=== PATIENT | male | born 1955 | race Caucasian/White ===

== ENCOUNTER 2016-08-07 13:04 | Inpatient (IN) | payer MEDICARE ==
[~2016-08-07] VITALS: Ht 182.9 cm; Wt 99.4 kg
[2016-08-07 13:52] LABS: GLUCOSE,POINT OF CARE 177 MG/DL (70-110)
[2016-08-07 14:06] LABS: BASOPHILS % (AUTO) 0.1 % (0.0-2.0); EOSINOPHILS % (AUTO) 0.1 % (1.0-6.0); HEMATOCRIT 43.6 % (41-53); HEMOGLOBIN 14.5 g/dL (13.5-17.5); LYMPHOCYTES # (AUTO) 1.1 K/uL (1.0-4.8); LYMPHOCYTES % (AUTO) 7.9 % (22.0-44.0); MEAN CORPUSCULAR HEMOGLOBIN 27.2 pg (26.0-34.0); MEAN CORPUSCULAR HGB CONC 33.3 G/dL (31.0-37.0); MEAN CORPUSCULAR VOLUME 81 fL (80-100); MONOCYTES # (AUTO) 1.1 K/uL (0.1-1.0); MONOCYTES % (AUTO) 7.7 % (2.0-9.0); NEUTROPHILS # (AUTO) 11.9 K/uL (1.8-7.7); NEUTROPHILS % (AUTO) 84.2 % (40.0-70.0); PLATELET COUNT (AUTO) 234 K/uL (150-450); RED BLOOD CELL COUNT(AUTO) 5.35 MIL/uL (4.50-5.90); RED CELL DISTRIBUTION WIDTH 16.5 % (11.5-14.5); WHITE BLOOD COUNT (AUTO) 14.1 K/uL (4.5-11.0)
[2016-08-07 14:19] LABS: ANION GAP 20 mmol/L (8-16); CALCIUM, TOTAL 9.3 mg/dL (8.8-10.5); CARBON DIOXIDE 17 mmol/L (22-29); CHLORIDE 102 mmol/L (98-107); GLOMERULAR FILTR. RATE CALC 41 mL/min (>60); POTASSIUM 4.1 mmol/L (3.5-5.1); SODIUM SERUM 139 mmol/L (136-145); UREA NITROGEN, BLOOD 33 mg/dL (7-18)
[2016-08-07 14:25] LABS: ALANINE AMINOTRANSFERASE 53 U/L (12-78); ALBUMIN 4.5 g/dL (3.4-5.0); ASPARTATE AMINOTRANSFERASE 54 U/L (15-37); BILIRUBIN,TOTAL 0.8 mg/dL (0.1-1.0); TOTAL PROTEIN, SERUM 7.8 g/dL (6.4-8.2)
[2016-08-07] MEDS ORDERED: DiphenhydrAMINE HCL 50 MG/ML VIAL IM ONE (16:30)
[2016-08-07] MEDS ORDERED: LORazepam 2 MG/ML VIAL IM ONE (16:30)
[2016-08-07] MEDS ORDERED: HALOPERIDOL LACTATE 5 MG/ML VIAL IM ONE (16:30)
[2016-08-07] MEDS ORDERED: OLANZapine 5 MG RAPDIS TABLET PO PRN (17:15)
[2016-08-07] MEDS ORDERED: HydrOXYzine PAMOATE 50 MG CAPSULE PO PRN (17:15)
[2016-08-07] MEDS ORDERED: MAGNESIUM HYDROXIDE SUSPENSION 30 ML UDCUP PO PRN (17:15)
[2016-08-07] MEDS ORDERED: LORazepam 2 MG TABLET PO PRN (17:15)
[2016-08-07] MEDS ORDERED: TUBERCULIN, PURIFIED PROTEIN DERIVATIVE 5 TU/0.1 ML SYG ID ONE (17:15)
[2016-08-07] MEDS ORDERED: ACETAMINOPHEN 325 MG TABLET PO PRN (17:15)
[2016-08-07] MEDS ORDERED: ZOLPIDEM TARTRATE 10 MG TABLET PO PRN (17:15)
[2016-08-07] MEDS ORDERED: PROMETHAZINE HCL 25 MG TABLET PO PRN (17:15)
[2016-08-07] MEDS ORDERED: LOPERAMIDE HCL 2 MG CAPSULE PO PRN (17:15)
[2016-08-07] MEDS: OLANZapine 5 MG RAPDIS TABLET PO SCH (21:00)
[2016-08-07] MEDS: THIAMINE HCL 100 MG TABLET PO SCH (21:00)
[2016-08-07 22:10] VITALS: BP 142/77
[2016-08-08 02:40] VITALS: BP 151/74
[2016-08-08 07:31] LABS: BASOPHILS # (AUTO) 0.03 K/uL (0.00-0.20); BASOPHILS % (AUTO) 0.2 % (0.0-2.0); EOSINOPHILS # (AUTO) 0.04 K/uL (0.00-0.70); HEMATOCRIT 44.8 % (41-53); HEMOGLOBIN 14.3 g/dL (13.5-17.5); LYMPHOCYTES # (AUTO) 2.1 K/uL (1.0-4.8); MEAN CORPUSCULAR HEMOGLOBIN 26.8 pg (26.0-34.0); MEAN CORPUSCULAR VOLUME 84 fL (80-100); MONOCYTES % (AUTO) 7.3 % (2.0-9.0); NEUTROPHILS # (AUTO) 9.9 K/uL (1.8-7.7); NEUTROPHILS % (AUTO) 76.2 % (40.0-70.0); PLATELET COUNT (AUTO) 184 K/uL (150-450); RED BLOOD CELL COUNT(AUTO) 5.35 MIL/uL (4.50-5.90); RED CELL DISTRIBUTION WIDTH 16.9 % (11.5-14.5); WHITE BLOOD COUNT (AUTO) 13.1 K/uL (4.5-11.0)
[2016-08-08 07:37] LABS: HEMOGLOBIN A1C 6.8 % (4.5-6.2)
[2016-08-08 07:56] LABS: ALANINE AMINOTRANSFERASE 44 U/L (12-78); ALBUMIN 3.8 g/dL (3.4-5.0); ANION GAP 13 mmol/L (8-16); ASPARTATE AMINOTRANSFERASE 45 U/L (15-37); BILIRUBIN,TOTAL 0.5 mg/dL (0.1-1.0); CALCIUM, TOTAL 8.7 mg/dL (8.8-10.5); CARBON DIOXIDE 21 mmol/L (22-29); CHLORIDE 104 mmol/L (98-107); CHOL/HDL RATIO 3.3 (4.2-7.3); GLOMERULAR FILTR. RATE CALC > 60 mL/min (>60); SODIUM SERUM 138 mmol/L (136-145); THYROID STIMULATING HORMONE 0.54 uIU/mL (0.36-3.74); TOTAL PROTEIN, SERUM 6.8 g/dL (6.4-8.2); UREA NITROGEN, BLOOD 29 mg/dL (7-18)
[2016-08-08 08:10] VITALS: BP 129/77
[2016-08-08] MEDS: FOLIC ACID 1 MG TABLET PO SCH (08:20)
[2016-08-08] MEDS: MULTIVITAMINS WITH MINERALS, THERAPEUTIC TABLET PO SCH (08:20)
[2016-08-08] MEDS: THIAMINE HCL 100 MG TABLET PO SCH ×2 (08:20→16:39)
[2016-08-08] MEDS: MAG HYDROX/AL HYDROX/SIMETH ES 30 ML SUSPENSION UDCUP PO PRN ×2 (09:39→21:06)
[2016-08-08] MEDS ORDERED: DEXTROSE 50%-WATER 25 GM/50 ML SYRINGE IVP PRN (16:30)
[2016-08-08 17:00] VITALS: BP 154/83
[2016-08-08 17:02] LABS: GLUCOSE COMMENT 1 Received Meds; GLUCOSE,POINT OF CARE 138 MG/DL (70-110)
[2016-08-08] MEDS: OLANZapine 5 MG RAPDIS TABLET PO SCH (20:15)
[2016-08-08] MEDS: GuaiFENesin/D-METHORPHAN [SUGAR-FREE] 200-20MG/10 ML SYRUP UDCUP PO PRN (20:17)
[2016-08-08] MEDS: DIVALPROEX SODIUM 500 MG ER TABLET PO SCH ×2 (20:17→20:23)
[2016-08-09 02:45] VITALS: BP 156/85
[2016-08-09] MEDS: GuaiFENesin/D-METHORPHAN [SUGAR-FREE] 200-20MG/10 ML SYRUP UDCUP PO PRN (02:48)
[2016-08-09 05:48] LABS: GLUCOSE,POINT OF CARE 128 MG/DL (70-110)
[2016-08-09 06:03] LABS: GLUCOSE,POINT OF CARE 153 MG/DL (70-110)
[2016-08-09] MEDS: INSULIN ASPART 100 UNITS/ML SQ PRN (06:53)
[2016-08-09] MEDS ORDERED: MetFORMIN HCL 500 MG TABLET PO SCH (07:30)
[2016-08-09 08:05] VITALS: BP 142/92
[2016-08-09] MEDS: THIAMINE HCL 100 MG TABLET PO SCH ×2 (08:55→17:03)
[2016-08-09] MEDS: MULTIVITAMINS WITH MINERALS, THERAPEUTIC TABLET PO SCH (08:55)
[2016-08-09] MEDS: FOLIC ACID 1 MG TABLET PO SCH (08:55)
[2016-08-09 16:05] VITALS: BP 161/93
[2016-08-09] MEDS: LISINOPRIL 10 MG TABLET PO SCH (17:03)
[2016-08-09] MEDS: MetFORMIN HCL 500 MG TABLET PO SCH (17:03)
[2016-08-09 17:12] LABS: GLUCOSE COMMENT 1 Received Meds; GLUCOSE,POINT OF CARE 135 MG/DL (70-110)
[2016-08-09] MEDS: DIVALPROEX SODIUM 500 MG ER TABLET PO SCH (20:49)
[2016-08-09 21:00] VITALS: BP 131/73
[2016-08-09] MEDS ORDERED: OLANZapine 10 MG RAPDIS TABLET PO SCH (21:00)
[2016-08-10 02:25] VITALS: BP 148/95
[2016-08-10 07:02] LABS: BASOPHILS % (AUTO) 0.3 % (0.0-2.0); EOSINOPHILS % (AUTO) 0 % (1.0-6.0); HEMATOCRIT 41.9 % (41-53); HEMOGLOBIN 13.7 g/dL (13.5-17.5); LYMPHOCYTES # (AUTO) 1.2 K/uL (1.0-4.8); LYMPHOCYTES % (AUTO) 8.2 % (22.0-44.0); MEAN CORPUSCULAR HEMOGLOBIN 27.2 pg (26.0-34.0); MEAN CORPUSCULAR HGB CONC 32.8 G/dL (31.0-37.0); MEAN CORPUSCULAR VOLUME 83 fL (80-100); MONOCYTES # (AUTO) 1.1 K/uL (0.1-1.0); MONOCYTES % (AUTO) 7.6 % (2.0-9.0); NEUTROPHILS # (AUTO) 12.5 K/uL (1.8-7.7); NEUTROPHILS % (AUTO) 83.9 % (40.0-70.0); PLATELET COUNT (AUTO) 186 K/uL (150-450); RED BLOOD CELL COUNT(AUTO) 5.05 MIL/uL (4.50-5.90); RED CELL DISTRIBUTION WIDTH 16.3 % (11.5-14.5); WHITE BLOOD COUNT (AUTO) 14.9 K/uL (4.5-11.0)
[2016-08-10] MEDS: INSULIN ASPART 100 UNITS/ML SQ PRN ×2 (07:20→11:39)
[2016-08-10] MEDS: LISINOPRIL 10 MG TABLET PO SCH (08:50)
[2016-08-10] MEDS: MetFORMIN HCL 500 MG TABLET PO SCH (08:50)
[2016-08-10] MEDS: FOLIC ACID 1 MG TABLET PO SCH (08:50)
[2016-08-10] MEDS: MULTIVITAMINS WITH MINERALS, THERAPEUTIC TABLET PO SCH (08:50)
[2016-08-10] MEDS: THIAMINE HCL 100 MG TABLET PO SCH ×2 (08:50→16:22)
[2016-08-10 09:31] VITALS: BP 176/87
[2016-08-10] MEDS: MAG HYDROX/AL HYDROX/SIMETH ES 30 ML SUSPENSION UDCUP PO PRN (09:56)
[2016-08-10 11:01] LABS: GLUCOSE,POINT OF CARE 160 MG/DL (70-110)
[2016-08-10 11:10] LABS: GLUCOSE,POINT OF CARE 181 MG/DL (70-110)
[2016-08-10 11:18] LABS: GLUCOSE COMMENT 1 Received Meds; GLUCOSE,POINT OF CARE 163 MG/DL (70-110)
[2016-08-10 16:34] VITALS: BP 134/75
[2016-08-10] MEDS ORDERED: DIVA500T52 PO (17:00)
[2016-08-10] MEDS ORDERED: OLAN10TA22 PO (17:00)
[2016-08-10] MEDS ORDERED: MetFORMIN HCL 500 MG TABLET PO SCH (17:00)
[2016-08-10] MEDS ORDERED: METF500T4 PO (19:08)
[2016-08-10] MEDS ORDERED: LISI-661 PO (19:09)
== END 2016-08-10 19:40 | disposition home or self-care (01) | DRG 885 ==
LOC: EMS 13:06 → 3EX 21:00
PROVIDERS: ADMIT Psychiatry & Neurology Psychiatry; ATTEND Psychiatry & Neurology Psychiatry
DX: F20.0 Paranoid schizophrenia (principal); F12.90 Cannabis use, unspecified, uncomplicated; E78.00 Pure hypercholesterolemia, unspecified; E11.9 Type 2 diabetes mellitus without complications; F17.200 Nicotine dependence, unspecified, uncomplicated; E66.9 Obesity, unspecified; J44.9 Chronic obstructive pulmonary disease, unspecified; I10 Essential (primary) hypertension; N40.0 Benign prostatic hyperplasia without lower urinary tract symptoms; D72.829 Elevated white blood cell count, unspecified; Z91.19 Patient's noncompliance with other medical treatment and regimen; Z81.8 Family history of other mental and behavioral disorders; Z59.0 Homelessness; Z68.29 Body mass index [BMI] 29.0-29.9, adult; Z79.84 Long term (current) use of oral hypoglycemic drugs; Z79.899 Other long term (current) drug therapy
CPT/HCPCS: 82962; 83036; 84439; 84443; 86592; 93005; 96372; 99285; G0480; J1200; J1630; J2060

== ENCOUNTER 2017-01-21 15:31 | Inpatient (IN) | payer MEDICARE ==
[~2017-01-21] VITALS: Ht 182.9 cm; Wt 96.6 kg
[~2017-01-21 15:31] MED LIST: DIVA500T52 PO; LISI-661 PO; METF500T4 PO; OLAN10TA22 PO
[2017-01-21] MEDS ORDERED: HALOPERIDOL LACTATE 5 MG/ML VIAL IM ONE (16:15)
[2017-01-21] MEDS ORDERED: DiphenhydrAMINE HCL 50 MG/ML VIAL IM ONE (16:15)
[2017-01-21] MEDS ORDERED: LORazepam 2 MG/ML VIAL IM ONE (16:15)
[2017-01-21 17:09] LABS: BASOPHILS % (AUTO) 0.2 % (0.0-2.0); EOSINOPHILS % (AUTO) 0.2 % (1.0-6.0); HEMATOCRIT 38.7 % (41-53); HEMOGLOBIN 13.2 g/dL (13.5-17.5); LYMPHOCYTES # (AUTO) 0.8 K/uL (1.0-4.8); LYMPHOCYTES % (AUTO) 8.3 % (22.0-44.0); MEAN CORPUSCULAR HEMOGLOBIN 26.7 pg (26.0-34.0); MEAN CORPUSCULAR HGB CONC 34.1 G/dL (31.0-37.0); MEAN CORPUSCULAR VOLUME 78 fL (80-100); MONOCYTES # (AUTO) 0.8 K/uL (0.1-1.0); MONOCYTES % (AUTO) 8.9 % (2.0-9.0); NEUTROPHILS # (AUTO) 7.5 K/uL (1.8-7.7); NEUTROPHILS % (AUTO) 82.4 % (40.0-70.0); PLATELET COUNT (AUTO) 201 K/uL (150-450); RED BLOOD CELL COUNT(AUTO) 4.94 MIL/uL (4.50-5.90); RED CELL DISTRIBUTION WIDTH 16.5 % (11.5-14.5); WHITE BLOOD COUNT (AUTO) 9.2 K/uL (4.5-11.0)
[2017-01-21 17:33] LABS: ALANINE AMINOTRANSFERASE 25 U/L (12-78); ANION GAP 16 mmol/L (8-16); ASPARTATE AMINOTRANSFERASE 24 U/L (15-37); BILIRUBIN,TOTAL 0.8 mg/dL (0.1-1.0); CARBON DIOXIDE 21 mmol/L (22-29); CHLORIDE 107 mmol/L (98-107); CREATININE 1.43 mg/dL (0.60-1.30); GLOMERULAR FILTR. RATE CALC 50 mL/min (>60); SODIUM SERUM 144 mmol/L (136-145); TOTAL PROTEIN, SERUM 7.1 g/dL (6.4-8.2); UREA NITROGEN, BLOOD 24 mg/dL (7-18)
[2017-01-21 17:50] LABS: POTASSIUM 2.9 mmol/L (3.5-5.1)
[2017-01-21] MEDS ORDERED: POTASSIUM CHLORIDE 20 MEQ ER TABLET PO ONE (18:45)
[2017-01-21 19:50] VITALS: BP 153/76
[2017-01-21] MEDS: DIVALPROEX SODIUM 500 MG ER TABLET PO SCH (20:00)
[2017-01-21] MEDS: OLANZapine 10 MG RAPDIS TABLET PO SCH (20:00)
[2017-01-21] MEDS: LORazepam 2 MG TABLET PO PRN (20:00)
[2017-01-21 20:22] LABS: GLUCOSE,POINT OF CARE 166 MG/DL (70-110)
[2017-01-21] MEDS ORDERED: GLUCAGON,HUMAN RECOMBINANT 1 MG VIAL IM PRN (20:30)
[2017-01-21] MEDS: INSULIN ASPART 100 UNITS/ML SQ PRN (20:37)
[2017-01-21] MEDS ORDERED: PNEUMOCOCCAL VACCINE POLYVALENT 0.5 ML VIAL [PPSV23] IM ONE (20:45)
[2017-01-21] MEDS ORDERED: INFLUENZA VIRUS VACCINE QVS 2017-18 (3YR+)/PF 60 MCG/0.5 ML SYRINGE IM ONE (20:45)
[2017-01-22 06:07] LABS: GLUCOSE,POINT OF CARE 203 MG/DL (70-110)
[2017-01-22 06:11] VITALS: BP 132/84
[2017-01-22] MEDS: MetFORMIN HCL 500 MG TABLET PO SCH ×2 (06:18→16:34)
[2017-01-22] MEDS: INSULIN ASPART 100 UNITS/ML SQ PRN ×4 (06:27→20:59)
[2017-01-22] MEDS ORDERED: MetFORMIN HCL 500 MG TABLET PO SCH (07:00)
[2017-01-22 08:15] VITALS: BP 135/75
[2017-01-22] MEDS: LISINOPRIL 10 MG TABLET PO SCH (08:17)
[2017-01-22 08:56] LABS: CALCIUM, TOTAL 8.8 mg/dL (8.8-10.5); CHOL/HDL RATIO 2.6 (4.2-7.3); CREATININE 1.35 mg/dL (0.60-1.30); POTASSIUM 3.9 mmol/L (3.5-5.1)
[2017-01-22 11:27] LABS: HEMOGLOBIN A1C 6.6 % (4.5-6.2)
[2017-01-22 11:38] LABS: GLUCOSE,POINT OF CARE 169 MG/DL (70-110)
[2017-01-22] MEDS: NICOTINE 21 MG/24 HOUR PATCH TD SCH (11:45)
[2017-01-22] MEDS ORDERED: NICOTINE 21 MG/24 HOUR PATCH TD SCH (14:00)
[2017-01-22 16:00] VITALS: BP 189/92
[2017-01-22] MEDS ORDERED: LISINOPRIL 10 MG TABLET PO ONE (16:15)
[2017-01-22] MEDS: HALOPERIDOL 5 MG TABLET PO PRN (16:35)
[2017-01-22] MEDS: LORazepam 2 MG TABLET PO PRN (16:35)
[2017-01-22 17:02] LABS: GLUCOSE,POINT OF CARE 226 MG/DL (70-110)
[2017-01-22 17:30] VITALS: BP 138/82
[2017-01-22] MEDS: DIVALPROEX SODIUM 500 MG ER TABLET PO SCH (20:55)
[2017-01-22] MEDS: OLANZapine 10 MG RAPDIS TABLET PO SCH (20:56)
[2017-01-22 21:06] LABS: GLUCOSE,POINT OF CARE 195 MG/DL (70-110)
[2017-01-22] MEDS: ZOLPIDEM TARTRATE 10 MG TABLET PO PRN (21:08)
[2017-01-23 05:46] VITALS: BP 127/74
[2017-01-23 06:01] LABS: GLUCOSE,POINT OF CARE 163 MG/DL (70-110)
[2017-01-23] MEDS: MetFORMIN HCL 500 MG TABLET PO SCH ×2 (06:31→16:41)
[2017-01-23] MEDS: INSULIN ASPART 100 UNITS/ML SQ PRN ×3 (06:37→21:06)
[2017-01-23] MEDS: LISINOPRIL 10 MG TABLET PO SCH (08:23)
[2017-01-23] MEDS: NICOTINE 21 MG/24 HOUR PATCH TD SCH (08:23)
[2017-01-23 08:46] VITALS: BP 132/83
[2017-01-23 11:08] LABS: GLUCOSE,POINT OF CARE 115 MG/DL (70-110)
[2017-01-23 16:18] VITALS: BP 175/91
[2017-01-23] MEDS: LORazepam 2 MG TABLET PO PRN (16:41)
[2017-01-23 16:51] VITALS: BP 146/83
[2017-01-23 18:17] LABS: GLUCOSE,POINT OF CARE 170 MG/DL (70-110)
[2017-01-23] MEDS: ZOLPIDEM TARTRATE 10 MG TABLET PO PRN (20:58)
[2017-01-23] MEDS: OLANZapine 10 MG RAPDIS TABLET PO SCH (20:58)
[2017-01-23] MEDS: DIVALPROEX SODIUM 500 MG ER TABLET PO SCH (20:58)
[2017-01-23 21:53] LABS: GLUCOSE,POINT OF CARE 148 MG/DL (70-110)
[2017-01-24 01:12] VITALS: BP 137/113
[2017-01-24] MEDS: ZOLPIDEM TARTRATE 10 MG TABLET PO PRN (01:14)
[2017-01-24] MEDS: LORazepam 2 MG TABLET PO PRN ×2 (01:14→16:23)
[2017-01-24 02:10] VITALS: BP 127/86
[2017-01-24] MEDS: MetFORMIN HCL 500 MG TABLET PO SCH ×2 (06:48→16:23)
[2017-01-24] MEDS: INSULIN ASPART 100 UNITS/ML SQ PRN ×4 (06:50→20:42)
[2017-01-24 06:53] LABS: GLUCOSE,POINT OF CARE 190 MG/DL (70-110)
[2017-01-24] MEDS: LISINOPRIL 10 MG TABLET PO SCH ×2 (08:27→16:23)
[2017-01-24] MEDS: NICOTINE 21 MG/24 HOUR PATCH TD SCH (08:28)
[2017-01-24 09:31] VITALS: BP 163/75
[2017-01-24 11:02] LABS: GLUCOSE,POINT OF CARE 141 MG/DL (70-110)
[2017-01-24] MEDS: HALOPERIDOL 5 MG TABLET PO PRN (16:23)
[2017-01-24 17:12] LABS: GLUCOSE,POINT OF CARE 159 MG/DL (70-110)
[2017-01-24 17:38] VITALS: BP 159/92
[2017-01-24] MEDS: CloNIDine HCL 0.1 MG TABLET PO PRN (17:39)
[2017-01-24 18:40] VITALS: BP 132/78
[2017-01-24] MEDS: DIVALPROEX SODIUM 500 MG ER TABLET PO SCH (20:37)
[2017-01-24] MEDS: OLANZapine 10 MG RAPDIS TABLET PO SCH (20:37)
[2017-01-24 21:27] LABS: GLUCOSE,POINT OF CARE 201 MG/DL (70-110)
[2017-01-25 04:39] VITALS: BP 129/83
[2017-01-25 06:07] LABS: GLUCOSE,POINT OF CARE 159 MG/DL (70-110)
[2017-01-25] MEDS: INSULIN ASPART 100 UNITS/ML SQ PRN ×3 (06:24→21:00)
[2017-01-25] MEDS: MetFORMIN HCL 500 MG TABLET PO SCH ×2 (07:28→16:54)
[2017-01-25 08:24] VITALS: BP 142/86
[2017-01-25] MEDS: NICOTINE 21 MG/24 HOUR PATCH TD SCH (09:21)
[2017-01-25] MEDS: LORazepam 2 MG TABLET PO PRN (09:21)
[2017-01-25] MEDS: LISINOPRIL 10 MG TABLET PO SCH ×2 (09:21→16:54)
[2017-01-25] MEDS: HALOPERIDOL 5 MG TABLET PO PRN (09:21)
[2017-01-25 11:47] LABS: GLUCOSE,POINT OF CARE 101 MG/DL (70-110)
[2017-01-25] MEDS ORDERED: LORazepam 2 MG/ML VIAL IM ONE (16:00)
[2017-01-25] MEDS ORDERED: DiphenhydrAMINE HCL 50 MG/ML VIAL IM ONE (16:00)
[2017-01-25] MEDS ORDERED: HALOPERIDOL LACTATE 5 MG/ML VIAL IM ONE (16:00)
[2017-01-25 16:57] VITALS: BP 154/89
[2017-01-25 17:17] LABS: GLUCOSE,POINT OF CARE 253 MG/DL (70-110)
[2017-01-25 18:00] VITALS: BP 128/79
[2017-01-25] MEDS: DIVALPROEX SODIUM 500 MG ER TABLET PO SCH (20:48)
[2017-01-25] MEDS: OLANZapine 10 MG RAPDIS TABLET PO SCH (20:48)
[2017-01-25 21:02] LABS: GLUCOSE,POINT OF CARE 164 MG/DL (70-110)
[2017-01-26 02:17] VITALS: BP 142/81
[2017-01-26 05:58] LABS: GLUCOSE,POINT OF CARE 203 MG/DL (70-110)
[2017-01-26] MEDS: INSULIN ASPART 100 UNITS/ML SQ PRN ×3 (06:14→20:41)
[2017-01-26] MEDS: MetFORMIN HCL 500 MG TABLET PO SCH (06:19)
[2017-01-26 08:16] VITALS: BP 140/82
[2017-01-26] MEDS: LISINOPRIL 10 MG TABLET PO SCH ×2 (08:30→16:42)
[2017-01-26] MEDS: NICOTINE 21 MG/24 HOUR PATCH TD SCH (08:32)
[2017-01-26 11:32] LABS: GLUCOSE,POINT OF CARE 139 MG/DL (70-110)
[2017-01-26 16:00] VITALS: BP 138/80
[2017-01-26] MEDS: LORazepam 2 MG TABLET PO PRN (16:42)
[2017-01-26] MEDS: HALOPERIDOL 5 MG TABLET PO PRN (16:44)
[2017-01-26 17:17] LABS: GLUCOSE,POINT OF CARE 263 MG/DL (70-110)
[2017-01-26] MEDS: DIVALPROEX SODIUM 500 MG ER TABLET PO SCH (20:39)
[2017-01-26] MEDS: OLANZapine 10 MG RAPDIS TABLET PO SCH (20:39)
[2017-01-26 20:47] LABS: GLUCOSE,POINT OF CARE 150 MG/DL (70-110)
[2017-01-27 02:48] VITALS: BP 145/99
[2017-01-27 06:17] LABS: GLUCOSE,POINT OF CARE 188 MG/DL (70-110)
[2017-01-27] MEDS: GlipiZIDE 5 MG TABLET PO SCH (06:20)
[2017-01-27] MEDS: INSULIN ASPART 100 UNITS/ML SQ PRN ×4 (06:25→20:50)
[2017-01-27 08:01] VITALS: BP 169/95
[2017-01-27] MEDS: LISINOPRIL 10 MG TABLET PO SCH ×2 (08:44→16:09)
[2017-01-27] MEDS: NICOTINE 21 MG/24 HOUR PATCH TD SCH (08:45)
[2017-01-27 11:38] LABS: GLUCOSE COMMENT 1 Received Meds; GLUCOSE,POINT OF CARE 161 MG/DL (70-110)
[2017-01-27 16:03] VITALS: BP 154/87
[2017-01-27 17:27] LABS: GLUCOSE,POINT OF CARE 151 MG/DL (70-110)
[2017-01-27] MEDS: DIVALPROEX SODIUM 500 MG ER TABLET PO SCH (20:42)
[2017-01-27] MEDS: OLANZapine 10 MG RAPDIS TABLET PO SCH (20:42)
[2017-01-27 21:02] LABS: GLUCOSE,POINT OF CARE 205 MG/DL (70-110)
[2017-01-27] MEDS: ZOLPIDEM TARTRATE 10 MG TABLET PO PRN (21:04)
[2017-01-28] MEDS: GlipiZIDE 5 MG TABLET PO SCH (06:36)
[2017-01-28 06:38] LABS: GLUCOSE COMMENT 1 Received Meds; GLUCOSE,POINT OF CARE 195 MG/DL (70-110)
[2017-01-28] MEDS: INSULIN ASPART 100 UNITS/ML SQ PRN ×4 (06:44→21:08)
[2017-01-28 07:10] VITALS: BP 160/89
[2017-01-28 07:15] VITALS: BP 158/89
[2017-01-28] MEDS: LISINOPRIL 10 MG TABLET PO SCH ×2 (08:11→17:03)
[2017-01-28] MEDS: NICOTINE 21 MG/24 HOUR PATCH TD SCH (08:11)
[2017-01-28 08:44] LABS: BASOPHILS % (AUTO) 0.4 % (0.0-2.0); EOSINOPHILS % (AUTO) 0.6 % (1.0-6.0); HEMATOCRIT 41.5 % (41-53); HEMOGLOBIN 13.9 g/dL (13.5-17.5); LYMPHOCYTES # (AUTO) 1.5 K/uL (1.0-4.8); MEAN CORPUSCULAR HGB CONC 33.5 G/dL (31.0-37.0); MEAN CORPUSCULAR VOLUME 81 fL (80-100); MONOCYTES # (AUTO) 0.7 K/uL (0.1-1.0); MONOCYTES % (AUTO) 9.5 % (2.0-9.0); NEUTROPHILS # (AUTO) 5.4 K/uL (1.8-7.7); NEUTROPHILS % (AUTO) 70.5 % (40.0-70.0); PLATELET COUNT (AUTO) 169 K/uL (150-450); RED BLOOD CELL COUNT(AUTO) 5.15 MIL/uL (4.50-5.90); RED CELL DISTRIBUTION WIDTH 15.9 % (11.5-14.5); WHITE BLOOD COUNT (AUTO) 7.7 K/uL (4.5-11.0)
[2017-01-28 09:33] LABS: ALANINE AMINOTRANSFERASE 37 U/L (12-78); ALBUMIN 3.8 g/dL (3.4-5.0); ANION GAP 13 mmol/L (8-16); ASPARTATE AMINOTRANSFERASE 27 U/L (15-37); BILIRUBIN,TOTAL 0.5 mg/dL (0.1-1.0); CALCIUM, TOTAL 8.3 mg/dL (8.8-10.5); CARBON DIOXIDE 23 mmol/L (22-29); CHLORIDE 103 mmol/L (98-107); CREATINE KINASE MB 5.5 ng/mL (0-5); CREATINE KINASE, TOTAL 401 U/L (39-308); CREATININE 0.86 mg/dL (0.60-1.30); GLOMERULAR FILTR. RATE CALC > 60 mL/min (>60); POTASSIUM 3.1 mmol/L (3.5-5.1); SODIUM SERUM 139 mmol/L (136-145); TOTAL PROTEIN, SERUM 7.3 g/dL (6.4-8.2); UREA NITROGEN, BLOOD 17 mg/dL (7-18)
[2017-01-28] MEDS ORDERED: POTASSIUM CHLORIDE 20 MEQ ER TABLET PO SCH (10:00)
[2017-01-28 11:37] LABS: GLUCOSE COMMENT 1 Received Meds; GLUCOSE,POINT OF CARE 248 MG/DL (70-110)
[2017-01-28 12:55] VITALS: BP 176/83
[2017-01-28] MEDS: CloNIDine HCL 0.1 MG TABLET PO PRN (12:55)
[2017-01-28 14:21] VITALS: BP 142/83
[2017-01-28 16:11] VITALS: BP 139/83
[2017-01-28] MEDS: LORazepam 2 MG TABLET PO PRN (17:03)
[2017-01-28] MEDS: HALOPERIDOL 5 MG TABLET PO PRN (17:03)
[2017-01-28 17:57] LABS: GLUCOSE COMMENT 1 Received Meds; GLUCOSE,POINT OF CARE 150 MG/DL (70-110)
[2017-01-28] MEDS: DIVALPROEX SODIUM 500 MG ER TABLET PO SCH (20:49)
[2017-01-28] MEDS: OLANZapine 10 MG RAPDIS TABLET PO SCH (20:49)
[2017-01-28] MEDS: ZOLPIDEM TARTRATE 10 MG TABLET PO PRN (20:49)
[2017-01-28 20:52] LABS: GLUCOSE COMMENT 1 Received Meds; GLUCOSE,POINT OF CARE 229 MG/DL (70-110)
[2017-01-29 02:04] VITALS: BP 180/98
[2017-01-29] MEDS: CloNIDine HCL 0.1 MG TABLET PO PRN (02:09)
[2017-01-29 03:30] VITALS: BP 140/88
[2017-01-29 06:12] LABS: GLUCOSE COMMENT 1 Received Meds; GLUCOSE,POINT OF CARE 163 MG/DL (70-110)
[2017-01-29] MEDS: GlipiZIDE 5 MG TABLET PO SCH (06:15)
[2017-01-29] MEDS: INSULIN ASPART 100 UNITS/ML SQ PRN ×4 (06:18→20:39)
[2017-01-29 08:53] VITALS: BP 166/94
[2017-01-29 08:59] LABS: ALANINE AMINOTRANSFERASE 35 U/L (12-78); ALBUMIN 3.7 g/dL (3.4-5.0); ANION GAP 9 mmol/L (8-16); ASPARTATE AMINOTRANSFERASE 24 U/L (15-37); BILIRUBIN,TOTAL 0.4 mg/dL (0.1-1.0); CALCIUM, TOTAL 8.7 mg/dL (8.8-10.5); CARBON DIOXIDE 28 mmol/L (22-29); CHLORIDE 105 mmol/L (98-107); CREATININE 0.92 mg/dL (0.60-1.30); GLOMERULAR FILTR. RATE CALC > 60 mL/min (>60); POTASSIUM 3.6 mmol/L (3.5-5.1); SODIUM SERUM 142 mmol/L (136-145); TOTAL PROTEIN, SERUM 7.2 g/dL (6.4-8.2); UREA NITROGEN, BLOOD 17 mg/dL (7-18)
[2017-01-29] MEDS: LISINOPRIL 10 MG TABLET PO SCH (09:24)
[2017-01-29] MEDS: NICOTINE 21 MG/24 HOUR PATCH TD SCH (09:24)
[2017-01-29 11:48] LABS: GLUCOSE COMMENT 1 Received Meds; GLUCOSE,POINT OF CARE 187 MG/DL (70-110)
[2017-01-29] MEDS: OMEPRAZOLE 20 MG CAPSULE PO SCH (13:49)
[2017-01-29] MEDS: LORazepam 2 MG TABLET PO PRN ×2 (16:31→20:31)
[2017-01-29] MEDS: LISINOPRIL 20 MG TABLET PO SCH (16:31)
[2017-01-29] MEDS: HALOPERIDOL 5 MG TABLET PO PRN (16:31)
[2017-01-29 17:00] VITALS: BP 140/88
[2017-01-29 17:07] LABS: GLUCOSE,POINT OF CARE 146 MG/DL (70-110)
[2017-01-29] MEDS: DIVALPROEX SODIUM 500 MG ER TABLET PO SCH (20:31)
[2017-01-29] MEDS: OLANZapine 10 MG RAPDIS TABLET PO SCH (20:31)
[2017-01-29 20:57] LABS: GLUCOSE,POINT OF CARE 203 MG/DL (70-110)
[2017-01-30 05:14] VITALS: BP 143/88
[2017-01-30] MEDS: GlipiZIDE 5 MG TABLET PO SCH (06:12)
[2017-01-30 06:13] LABS: GLUCOSE,POINT OF CARE 183 MG/DL (70-110)
[2017-01-30] MEDS: INSULIN ASPART 100 UNITS/ML SQ PRN ×2 (06:16→16:47)
[2017-01-30 08:06] VITALS: BP 149/87
[2017-01-30] MEDS: OMEPRAZOLE 20 MG CAPSULE PO SCH (08:12)
[2017-01-30] MEDS: LISINOPRIL 20 MG TABLET PO SCH ×2 (08:12→16:45)
[2017-01-30] MEDS: NICOTINE 21 MG/24 HOUR PATCH TD SCH (08:13)
[2017-01-30] MEDS: HALOPERIDOL 5 MG TABLET PO PRN (08:13)
[2017-01-30] MEDS: LORazepam 2 MG TABLET PO PRN (08:13)
[2017-01-30] MEDS ORDERED: AmLODIPine BESYLATE 5 MG TABLET PO SCH (11:15)
[2017-01-30 12:28] LABS: GLUCOSE,POINT OF CARE 114 MG/DL (70-110)
[2017-01-30 16:00] VITALS: BP 148/89
[2017-01-30 17:07] LABS: GLUCOSE,POINT OF CARE 203 MG/DL (70-110)
[2017-01-30] MEDS ORDERED: GLIP5 PO (17:10)
[2017-01-30] MEDS ORDERED: AMLO-511 PO (17:10)
[2017-01-30] MEDS ORDERED: OMEP20 PO (17:10)
[2017-01-30] MEDS ORDERED: LISI-662 PO (17:10)
[2017-01-30] MEDS ORDERED: DIVA500T69 PO (17:19)
== END 2017-01-30 18:41 | disposition home or self-care (01) | DRG 885 ==
LOC: EMS 15:40 → B3A 18:31
DX: F25.1 Schizoaffective disorder, depressive type (principal); N18.9 Chronic kidney disease, unspecified; E11.22 Type 2 diabetes mellitus with diabetic chronic kidney disease; M62.82 Rhabdomyolysis; D64.9 Anemia, unspecified; E87.6 Hypokalemia; F12.10 Cannabis abuse, uncomplicated; F17.200 Nicotine dependence, unspecified, uncomplicated; I12.9 Hypertensive chronic kidney disease with stage 1 through stage 4 chronic kidney disease, or unspecified chronic kidney disease; K21.9 Gastro-esophageal reflux disease without esophagitis; N40.0 Benign prostatic hyperplasia without lower urinary tract symptoms; Z59.0 Homelessness; Z78.1 Physical restraint status; Z82.49 Family history of ischemic heart disease and other diseases of the circulatory system; Z91.19 Patient's noncompliance with other medical treatment and regimen; Z79.84 Long term (current) use of oral hypoglycemic drugs
CPT/HCPCS: 82962; 83036; 83735; 90471; 96372; 99285; G0480; J1200; J1630; J2060

== ENCOUNTER 2017-02-03 21:33 | Emergency (ER) | payer MEDICARE ==
[~2017-02-03] VITALS: Ht 182.9 cm; Wt 93.5 kg
[~2017-02-03 21:33] MED LIST changes: +AMLO-511 PO; -DIVA500T52 PO; +DIVA500T69 PO; +GLIP5 PO; -LISI-661 PO; +LISI-662 PO; -METF500T4 PO; +OMEP20 PO
[2017-02-03 22:03] LABS: BASOPHILS % (AUTO) 0.3 % (0.0-2.0); EOSINOPHILS % (AUTO) 0.4 % (1.0-6.0); HEMATOCRIT 40.9 % (41-53); HEMOGLOBIN 13.9 g/dL (13.5-17.5); LYMPHOCYTES # (AUTO) 2.1 K/uL (1.0-4.8); LYMPHOCYTES % (AUTO) 19.2 % (22.0-44.0); MEAN CORPUSCULAR HGB CONC 33.8 G/dL (31.0-37.0); MEAN CORPUSCULAR VOLUME 80 fL (80-100); MONOCYTES # (AUTO) 1.2 K/uL (0.1-1.0); MONOCYTES % (AUTO) 10.6 % (2.0-9.0); NEUTROPHILS # (AUTO) 7.8 K/uL (1.8-7.7); NEUTROPHILS % (AUTO) 69.5 % (40.0-70.0); PLATELET COUNT (AUTO) 228 K/uL (150-450); RED BLOOD CELL COUNT(AUTO) 5.14 MIL/uL (4.50-5.90); RED CELL DISTRIBUTION WIDTH 16.4 % (11.5-14.5); WHITE BLOOD COUNT (AUTO) 11.2 K/uL (4.5-11.0)
[2017-02-03 22:21] LABS: ANION GAP 12 mmol/L (8-16); CALCIUM, TOTAL 8.8 mg/dL (8.8-10.5); CARBON DIOXIDE 24 mmol/L (22-29); CHLORIDE 103 mmol/L (98-107); CREATININE 1.24 mg/dL (0.60-1.30); GLOMERULAR FILTR. RATE CALC 59 mL/min (>60); POTASSIUM 3.5 mmol/L (3.5-5.1); SODIUM SERUM 139 mmol/L (136-145); UREA NITROGEN, BLOOD 23 mg/dL (7-18)
[2017-02-03 22:27] LABS: ALANINE AMINOTRANSFERASE 53 U/L (12-78); ALBUMIN 4.1 g/dL (3.4-5.0); ASPARTATE AMINOTRANSFERASE 44 U/L (15-37); BILIRUBIN,TOTAL 0.7 mg/dL (0.1-1.0); TOTAL PROTEIN, SERUM 7.6 g/dL (6.4-8.2)
[2017-02-04 01:15] VITALS: BP 135/61
== END 2017-02-04 01:16 | disposition home or self-care (01) ==
LOC: EMS 21:35
DX: F41.9 Anxiety disorder, unspecified (principal); G47.00 Insomnia, unspecified; E11.9 Type 2 diabetes mellitus without complications; E78.00 Pure hypercholesterolemia, unspecified; I10 Essential (primary) hypertension; Z59.0 Homelessness
CPT/HCPCS: 36415; 80053; 80307; 85025; 99284; G0480

== ENCOUNTER 2017-02-11 11:57 | Inpatient (IN) | payer MEDICARE ==
[~2017-02-11] VITALS: Ht 182.9 cm; Wt 93.2 kg
[2017-02-11 12:27] LABS: GLUCOSE,POINT OF CARE 197 MG/DL (70-110)
[2017-02-11 12:55] LABS: BASOPHILS % (AUTO) 0.5 % (0.0-2.0); EOSINOPHILS % (AUTO) 0.2 % (1.0-6.0); HEMATOCRIT 38.8 % (41-53); HEMOGLOBIN 12.7 g/dL (13.5-17.5); LYMPHOCYTES # (AUTO) 1.6 K/uL (1.0-4.8); LYMPHOCYTES % (AUTO) 15.1 % (22.0-44.0); MEAN CORPUSCULAR HEMOGLOBIN 26.8 pg (26.0-34.0); MEAN CORPUSCULAR HGB CONC 32.7 G/dL (31.0-37.0); MEAN CORPUSCULAR VOLUME 82 fL (80-100); MONOCYTES # (AUTO) 0.8 K/uL (0.1-1.0); MONOCYTES % (AUTO) 6.9 % (2.0-9.0); NEUTROPHILS # (AUTO) 8.4 K/uL (1.8-7.7); NEUTROPHILS % (AUTO) 77.3 % (40.0-70.0); PLATELET COUNT (AUTO) 239 K/uL (150-450); RED BLOOD CELL COUNT(AUTO) 4.75 MIL/uL (4.50-5.90)
[2017-02-11] MEDS ORDERED: NIFE10 PO (13:00)
[2017-02-11] MEDS ORDERED: FINA5TAB41 PO (13:00)
[2017-02-11] MEDS ORDERED: LORazepam 2 MG/ML VIAL IM ONE (13:00)
[2017-02-11] MEDS ORDERED: METO50 PO (13:00)
[2017-02-11] MEDS ORDERED: ALFU10TA30 PO (13:00)
[2017-02-11] MEDS ORDERED: AMIL5TAB8 PO (13:00)
[2017-02-11] MEDS ORDERED: HALOPERIDOL LACTATE 5 MG/ML VIAL IM ONE (13:00)
[2017-02-11] MEDS ORDERED: EMPA25TA PO (13:00)
[2017-02-11] MEDS ORDERED: CETI-290 PO (13:00)
[2017-02-11] MEDS ORDERED: DiphenhydrAMINE HCL 50 MG/ML VIAL IM ONE (13:00)
[2017-02-11 13:13] LABS: ANION GAP 12 mmol/L (8-16); CALCIUM, TOTAL 8.4 mg/dL (8.8-10.5); CARBON DIOXIDE 22 mmol/L (22-29); CHLORIDE 107 mmol/L (98-107); GLOMERULAR FILTR. RATE CALC > 60 mL/min (>60); GLUCOSE,RANDOM 208 mg/dL (70-110); POTASSIUM 4.4 mmol/L (3.5-5.1); SODIUM SERUM 141 mmol/L (136-145); UREA NITROGEN, BLOOD 20 mg/dL (7-18)
[2017-02-11 13:15] LABS: AMPHET/METH SCREEN,URINE NEGATIVE (NEGATIVE); BARBITURATE SCREEN, URINE NEGATIVE (NEGATIVE); BENZODIAZEPINES SCREEN,URINE NEGATIVE (NEGATIVE); CANNABINOID SCREEN,URINE POSITIVE (NEGATIVE); COCAINE SCREEN,URINE NEGATIVE (NEGATIVE); METHADONE SCREEN, URINE NEGATIVE (NEGATIVE); OPIATE SCREEN,URINE NEGATIVE (NEGATIVE)
[2017-02-11 13:17] LABS: PHENCYCLIDINE SCREEN,URINE NEGATIVE (NEGATIVE)
[2017-02-11 13:19] LABS: ALANINE AMINOTRANSFERASE 50 U/L (12-78); ALBUMIN 3.5 g/dL (3.4-5.0); ALKALINE PHOSPHATASE 98 U/L (46-116); ASPARTATE AMINOTRANSFERASE 21 U/L (15-37); BILIRUBIN,TOTAL 0.3 mg/dL (0.1-1.0); TOTAL PROTEIN, SERUM 6.6 g/dL (6.4-8.2)
[2017-02-11] MEDS ORDERED: NIFE60TA71 PO (14:05)
[2017-02-11] MEDS ORDERED: GLIP10 PO (14:05)
[2017-02-11 17:20] VITALS: BP 124/74
[2017-02-11] MEDS ORDERED: DEXTROSE 50%-WATER 25 GM/50 ML SYRINGE IVP PRN (21:00)
[2017-02-11 21:37] LABS: GLUCOMETER DEV NAME(LOC) 3EC; GLUCOSE,POINT OF CARE 126 MG/DL (70-110)
[2017-02-11] MEDS ORDERED: PNEUMOCOCCAL VACCINE POLYVALENT 0.5 ML VIAL [PPSV23] IM ONE (22:30)
[2017-02-11] MEDS ORDERED: INFLUENZA VIRUS VACCINE QVS 2017-18 (3YR+)/PF 60 MCG/0.5 ML SYRINGE IM ONE (22:30)
[2017-02-12] MEDS: HALOPERIDOL 5 MG TABLET PO PRN ×2 (06:18→18:36)
[2017-02-12] MEDS: LORazepam 2 MG TABLET PO PRN ×2 (06:18→18:36)
[2017-02-12 06:19] LABS: GLUCOMETER DEV NAME(LOC) 3EC; GLUCOSE,POINT OF CARE 277 MG/DL (70-110)
[2017-02-12] MEDS: GlipiZIDE 5 MG TABLET PO SCH ×2 (06:33→17:01)
[2017-02-12] MEDS: INSULIN ASPART 100 UNITS/ML SQ PRN ×4 (06:52→21:53)
[2017-02-12 07:29] LABS: CHOL/HDL RATIO 3.7 (4.2-7.3)
[2017-02-12] MEDS: ALFUZOSIN HCL 10 MG ER TABLET PO SCH (08:05)
[2017-02-12] MEDS: METOPROLOL TARTRATE 50 MG TABLET PO SCH (08:06)
[2017-02-12] MEDS: OMEPRAZOLE 20 MG CAPSULE PO SCH (08:06)
[2017-02-12] MEDS: LISINOPRIL 20 MG TABLET PO SCH ×2 (08:06→17:01)
[2017-02-12] MEDS: CETIRIZINE HCL 10 MG TABLET PO SCH (08:06)
[2017-02-12] MEDS: FINASTERIDE 5 MG TABLET PO SCH (08:06)
[2017-02-12 08:49] VITALS: BP 144/80
[2017-02-12 11:27] LABS: GLUCOMETER DEV NAME(LOC) 3EC; GLUCOSE,POINT OF CARE 132 MG/DL (70-110)
[2017-02-12 16:32] VITALS: BP 123/75
[2017-02-12] MEDS: DIVALPROEX SODIUM 500 MG DR TABLET PO SCH (17:01)
[2017-02-12 17:03] LABS: GLUCOMETER DEV NAME(LOC) 3EC; GLUCOSE,POINT OF CARE 245 MG/DL (70-110)
[2017-02-12] MEDS ORDERED: IBUPROFEN 400 MG TABLET PO PRN (19:45)
[2017-02-12] MEDS ORDERED: ACETAMINOPHEN 325 MG TABLET PO PRN (19:45)
[2017-02-12] MEDS: ZOLPIDEM TARTRATE 10 MG TABLET PO PRN (20:58)
[2017-02-12 21:07] LABS: GLUCOMETER DEV NAME(LOC) 3EC; GLUCOSE,POINT OF CARE 147 MG/DL (70-110)
[2017-02-13 01:28] VITALS: BP 135/71
[2017-02-13 06:17] LABS: GLUCOMETER DEV NAME(LOC) 3EC; GLUCOSE,POINT OF CARE 209 MG/DL (70-110)
[2017-02-13] MEDS: GlipiZIDE 5 MG TABLET PO SCH ×2 (06:54→16:31)
[2017-02-13] MEDS: INSULIN ASPART 100 UNITS/ML SQ PRN ×3 (06:54→17:42)
[2017-02-13 07:43] LABS: HEMOGLOBIN A1C 7.3 % (4.5-6.2)
[2017-02-13 07:44] LABS: THYROID STIMULATING HORMONE 0.85 uIU/mL (0.36-3.74)
[2017-02-13] MEDS: METOPROLOL TARTRATE 50 MG TABLET PO SCH (08:01)
[2017-02-13] MEDS: DIVALPROEX SODIUM 500 MG DR TABLET PO SCH ×2 (08:01→16:31)
[2017-02-13] MEDS: LISINOPRIL 20 MG TABLET PO SCH ×2 (08:01→16:32)
[2017-02-13] MEDS: FINASTERIDE 5 MG TABLET PO SCH (08:01)
[2017-02-13] MEDS: CETIRIZINE HCL 10 MG TABLET PO SCH (08:01)
[2017-02-13] MEDS: ALFUZOSIN HCL 10 MG ER TABLET PO SCH (08:01)
[2017-02-13] MEDS: OMEPRAZOLE 20 MG CAPSULE PO SCH (08:01)
[2017-02-13] MEDS: HALOPERIDOL 5 MG TABLET PO PRN (08:03)
[2017-02-13] MEDS: LORazepam 2 MG TABLET PO PRN (08:03)
[2017-02-13 08:05] VITALS: BP 155/87
[2017-02-13] MEDS: NICOTINE 14 MG/24 HOUR PATCH TD SCH (08:07)
[2017-02-13 11:27] LABS: GLUCOMETER DEV NAME(LOC) 3EC; GLUCOSE,POINT OF CARE 217 MG/DL (70-110)
[2017-02-13 16:43] LABS: GLUCOMETER DEV NAME(LOC) 3EC; GLUCOSE,POINT OF CARE 200 MG/DL (70-110)
[2017-02-13 20:53] LABS: GLUCOMETER DEV NAME(LOC) 3EC; GLUCOSE,POINT OF CARE 102 MG/DL (70-110)
[2017-02-14 00:57] VITALS: BP 150/82
[2017-02-14] MEDS: ZOLPIDEM TARTRATE 10 MG TABLET PO PRN (02:47)
[2017-02-14 06:22] LABS: GLUCOMETER DEV NAME(LOC) 3EC; GLUCOSE,POINT OF CARE 171 MG/DL (70-110)
[2017-02-14] MEDS: GlipiZIDE 5 MG TABLET PO SCH ×2 (06:49→16:35)
[2017-02-14] MEDS: INSULIN ASPART 100 UNITS/ML SQ PRN ×4 (06:49→22:14)
[2017-02-14 08:14] VITALS: BP 157/83
[2017-02-14] MEDS: LISINOPRIL 20 MG TABLET PO SCH ×2 (08:37→16:35)
[2017-02-14] MEDS: METOPROLOL TARTRATE 50 MG TABLET PO SCH (08:38)
[2017-02-14] MEDS: OMEPRAZOLE 20 MG CAPSULE PO SCH (08:38)
[2017-02-14] MEDS: DIVALPROEX SODIUM 500 MG DR TABLET PO SCH ×2 (08:38→16:35)
[2017-02-14] MEDS: NICOTINE 14 MG/24 HOUR PATCH TD SCH (08:40)
[2017-02-14] MEDS: CETIRIZINE HCL 10 MG TABLET PO SCH (08:40)
[2017-02-14] MEDS: FINASTERIDE 5 MG TABLET PO SCH (08:41)
[2017-02-14] MEDS: ALFUZOSIN HCL 10 MG ER TABLET PO SCH (08:42)
[2017-02-14 11:53] LABS: GLUCOMETER DEV NAME(LOC) 3EC; GLUCOSE,POINT OF CARE 165 MG/DL (70-110)
[2017-02-14 17:12] LABS: GLUCOMETER DEV NAME(LOC) 3EC; GLUCOSE,POINT OF CARE 198 MG/DL (70-110)
[2017-02-14 20:17] LABS: GLUCOMETER DEV NAME(LOC) 3EC; GLUCOSE,POINT OF CARE 185 MG/DL (70-110)
[2017-02-14 20:55] VITALS: BP 153/79
[2017-02-15 01:42] VITALS: BP 166/97
[2017-02-15 06:12] LABS: GLUCOMETER DEV NAME(LOC) 3EC; GLUCOSE,POINT OF CARE 188 MG/DL (70-110)
[2017-02-15] MEDS: INSULIN ASPART 100 UNITS/ML SQ PRN ×4 (06:51→21:30)
[2017-02-15] MEDS: GlipiZIDE 5 MG TABLET PO SCH ×2 (06:52→16:46)
[2017-02-15] MEDS: OMEPRAZOLE 20 MG CAPSULE PO SCH (08:21)
[2017-02-15] MEDS: NICOTINE 14 MG/24 HOUR PATCH TD SCH (08:21)
[2017-02-15] MEDS: CETIRIZINE HCL 10 MG TABLET PO SCH (08:22)
[2017-02-15] MEDS: ALFUZOSIN HCL 10 MG ER TABLET PO SCH (08:22)
[2017-02-15] MEDS: METOPROLOL TARTRATE 50 MG TABLET PO SCH (08:22)
[2017-02-15] MEDS: DIVALPROEX SODIUM 500 MG DR TABLET PO SCH ×2 (08:22→16:46)
[2017-02-15] MEDS: FINASTERIDE 5 MG TABLET PO SCH (08:23)
[2017-02-15] MEDS: LISINOPRIL 20 MG TABLET PO SCH ×2 (08:23→16:46)
[2017-02-15 08:58] VITALS: BP 124/68
[2017-02-15] MEDS ORDERED: AmLODIPine BESYLATE 5 MG TABLET PO SCH (09:00)
[2017-02-15 11:53] LABS: GLUCOMETER DEV NAME(LOC) 3EC; GLUCOSE,POINT OF CARE 167 MG/DL (70-110)
[2017-02-15 16:29] VITALS: BP 157/74
[2017-02-15 17:47] LABS: GLUCOMETER DEV NAME(LOC) 3EC; GLUCOSE,POINT OF CARE 270 MG/DL (70-110)
[2017-02-15 20:18] LABS: GLUCOMETER DEV NAME(LOC) 3EC; GLUCOSE,POINT OF CARE 188 MG/DL (70-110)
[2017-02-16 01:52] VITALS: BP 152/74
[2017-02-16 05:52] LABS: GLUCOMETER DEV NAME(LOC) 3EI B; GLUCOSE,POINT OF CARE 240 MG/DL (70-110)
[2017-02-16] MEDS: GlipiZIDE 5 MG TABLET PO SCH ×2 (07:02→16:22)
[2017-02-16] MEDS: INSULIN ASPART 100 UNITS/ML SQ PRN ×3 (07:03→17:47)
[2017-02-16] MEDS: NICOTINE 14 MG/24 HOUR PATCH TD SCH (08:14)
[2017-02-16] MEDS: ALFUZOSIN HCL 10 MG ER TABLET PO SCH (08:15)
[2017-02-16] MEDS: METOPROLOL TARTRATE 50 MG TABLET PO SCH (08:15)
[2017-02-16] MEDS: CETIRIZINE HCL 10 MG TABLET PO SCH (08:15)
[2017-02-16] MEDS: DIVALPROEX SODIUM 500 MG DR TABLET PO SCH ×2 (08:15→16:22)
[2017-02-16] MEDS: LISINOPRIL 20 MG TABLET PO SCH ×2 (08:16→16:22)
[2017-02-16] MEDS: FINASTERIDE 5 MG TABLET PO SCH (08:16)
[2017-02-16] MEDS: OMEPRAZOLE 20 MG CAPSULE PO SCH (08:16)
[2017-02-16 08:42] VITALS: BP 161/78
[2017-02-16] MEDS ORDERED: AmLODIPine BESYLATE 10 MG TABLET PO SCH (09:00)
[2017-02-16 11:57] LABS: GLUCOMETER DEV NAME(LOC) 3EI B; GLUCOSE,POINT OF CARE 151 MG/DL (70-110)
[2017-02-16] MEDS ORDERED: DIVA500T35 PO (16:20)
[2017-02-16] MEDS ORDERED: LISI-662 PO (16:41)
[2017-02-16] MEDS ORDERED: GLIP5 PO (16:42)
[2017-02-16] MEDS ORDERED: AMLO-512 PO (16:43)
[2017-02-16] MEDS ORDERED: ALFU10TA30 PO (16:44)
[2017-02-16 16:54] VITALS: BP 149/82
[2017-02-16 17:28] LABS: GLUCOMETER DEV NAME(LOC) 3EI B; GLUCOSE,POINT OF CARE 222 MG/DL (70-110)
== END 2017-02-16 19:45 | disposition home or self-care (01) | DRG 885 ==
LOC: EMS 11:59 → 3EC 16:12 → 3EI 02-15 20:16
PROVIDERS: ADMIT Psychiatry & Neurology Psychiatry; ATTEND Psychiatry & Neurology Psychiatry
DX: F25.9 Schizoaffective disorder, unspecified (principal); E11.9 Type 2 diabetes mellitus without complications; D64.9 Anemia, unspecified; E78.00 Pure hypercholesterolemia, unspecified; E78.5 Hyperlipidemia, unspecified; F10.10 Alcohol abuse, uncomplicated; F17.200 Nicotine dependence, unspecified, uncomplicated; I10 Essential (primary) hypertension; K21.9 Gastro-esophageal reflux disease without esophagitis; F19.10 Other psychoactive substance abuse, uncomplicated; N40.0 Benign prostatic hyperplasia without lower urinary tract symptoms; Z59.0 Homelessness; Z71.6 Tobacco abuse counseling; Z79.899 Other long term (current) drug therapy; Z71.41 Alcohol abuse counseling and surveillance of alcoholic; Z71.51 Drug abuse counseling and surveillance of drug abuser
CPT/HCPCS: 82962; 83036; 84443; 87081; 96372; 99285; G0480; J1200; J1630; J2060